=== PATIENT | female | born 1980 | race Caucasian/White ===

== ENCOUNTER 2017-07-13 09:22 | Inpatient (IN) | payer OTHER ==
--- NOTE | 2017-07-13 11:25 | HP ---
General Information - General Information Maternal Age: 37 Grav: 1 Para: 0 SAB: 0 IEA: 0 Estimated Due Date: 07/01/17 Determined By: LMP Gestational Age in Weeks and Days: 41 Weeks and 5 Days Maternal Blood Type and Rh: A Positive - Results this Serology/RPR Result: Non-Reactive Rubella Result: Non-Immune HBsAg Result: Negative HIV Result: Negative GBS Culture Result: Negative Past Medical History Pertinent Past Medical History: Non-Contributory Pertinent Past Surgical History: None Pertinent Family History: Non-Contributory - Antepartal Records Antepartal Records: Reviewed, Complicated by: - age 37 at delivery, NIPT WNL Review of Systems Constitutional: Uncomfortable CV Complaint: No Respiratory: Shortness of Breath: No Genitourinary: No Leaking Fluid Musculoskeletal: Contractions Neurological: No Headache Movement: Normal - Comments nausea/vomiting. Soft stool this am Exam Allergies/Adverse Reactions: Allergies No Known Allergies Allergy (Verified 07/13/17 09:33) Vital Signs 07/13/17 09:30 Temperature 98.7 F Pulse Rate 87 Respiratory 17 Rate Blood Pressure 127/71 (mmHg) O2 Sat by Pulse 99 Oximetry - Measurements Height: 5 ft 10.5 in Weight: 185 lb Weight in lbs: 185 Body Mass Index (BMI): 26.2 Pre- Weight: 144 lb Weight Gained This : 41 lbs and 0 ozs - Exam Breast: - - soft, no masses CVA: No CVA Tenderness Extremities: No Edema Heart: Normal Rhythm/Heart Sounds HEENT: No Significant Findings Lungs: Clear Bilaterally Reflexes: DTR 2+ Thyroid: No Thyromegaly - Ultrasound/Biophysical Profile Ultrasound Status: Not Done Targeted Exam Findings See L&D Outpatient Visit Provider Note for Findings: N/A Estimated Weight: 8 lbs Cervical Exam: 4cm Effacement: 100% Station: 0 Presenting Part: Vertex Membrane Status: Intact Bleeding/Discharge: Bloody Show EFM Findings - External Monitor Findings Baseline Heart Rate: 140 External Monitor Findings: Accelerations Present, No Pattern of Variable or Late Decelerations, Variability Moderate External Monitor Findings Comment: category 1 Contractions: Regular, Strong, 45-90 Seconds Contraction Frequency: q 5 min Assessment/Plan - Reason for Visit Reason for Visit: labor - Obstetrical Risk Factors Obstetrical Risk Factors: Post-Dates - Plan Plan: Active Labor Plan Comment: admit, anticipate vaginal delivery - Date/Time of Admission Date of Admission: 07/13/17 Time of Admission: 09:45
[2017-07-13] MEDS ORDERED: Witch Hazel PAD* JAR ONE (16:50)
[2017-07-13] MEDS ORDERED: Glycerin ADULT SUPP PR PRN (17:58)
[2017-07-13] MEDS ORDERED: Measles, Mumps,Rubella VACC* 0.5 ML/VIAL SUBCUT ONE (17:58)
[2017-07-13] MEDS ORDERED: Acetaminophen TAB* 325 MG PO PRN (17:58)
[2017-07-13] MEDS ORDERED: OXYTOCIN* 10 UNITS/ML 1 ML VIAL IM ONE (17:58)
[2017-07-13] MEDS: Witch Hazel PAD* JAR TOPICAL PRN (18:13)
[2017-07-13] MEDS: Ibuprofen TAB* 600 MG PO PRN (18:27)
[2017-07-13] MEDS: Docusate CAP* 100 MG PO SCH (20:33)
[2017-07-14] MEDS: Ibuprofen TAB* 600 MG PO PRN ×4 (00:28→20:25)
[2017-07-14 06:35] LABS: Hematocrit 33 % (35-47); Hemoglobin 11.5 g/dl (12.0-16.0); Mean Corpuscular HGB Conc 35 g/dl (31-36); Mean Corpuscular Hemoglobin 33 pg (27-31); Mean Corpuscular Volume 93 fL (80-97); Mean Platelet Volume 10.7 um3 (7.4-10.4); Platelet Count 150 10^3/ul (150-450); Red Blood Count 3.53 10^6/ul (4.0-5.4); Red Cell Distribution Width 13 % (10.5-15)
[2017-07-14] MEDS: Docusate CAP* 100 MG PO SCH ×3 (08:16→20:26)
[2017-07-14] MEDS ORDERED: Ferrous Gluconate TAB* 324 MG TAB PO SCH (09:00)
[2017-07-14] MEDS: Dibucaine 1% 28.35 GM TUBE PR PRN (16:13)
[2017-07-14] MEDS: Witch Hazel PAD* JAR TOPICAL PRN (19:18)
--- NOTE | 2017-07-14 20:39 | PTEDU ---
Patient Name: KIARA HARRIS KIARA HARRIS selected video: Never Ever Shake a Baby to view on 07/14/2017 at 8:38:18 PM from [id number]
[2017-07-15] MEDS: Ibuprofen TAB* 600 MG PO PRN ×2 (04:04→12:36)
[2017-07-15 08:03] VITALS: BP 123/77
[2017-07-15] MEDS: Dibucaine 1% 28.35 GM TUBE PR PRN (08:47)
[2017-07-15] MEDS: Docusate CAP* 100 MG PO SCH (08:47)
== END 2017-07-15 14:36 | disposition home or self-care (01) | DRG 775 ==
LOC: MCHOBOUT 09:22 → MCHOB 09:57
PROVIDERS: ADMIT Midwife; ATTEND Midwife
PROC: 10E0XZZ Delivery of Products of Conception, External Approach (ICD-10-PCS; principal; 2017-07-13)
PROC: 10907ZC Drainage of Amniotic Fluid, Therapeutic from Products of Conception, Via Natural or Artificial Opening (ICD-10-PCS; 2017-07-13)
PROC: 0HQ9XZZ Repair Perineum Skin, External Approach (ICD-10-PCS; 2017-07-13)
DX: O48.0 Post-term pregnancy (principal); Z3A.41 41 weeks gestation of pregnancy; O70.0 First degree perineal laceration during delivery; O77.0 Labor and delivery complicated by meconium in amniotic fluid; O69.81X0 Labor and delivery complicated by cord around neck, without compression, not applicable or unspecified; Z37.0 Single live birth
CPT/HCPCS: 36415; 85027; 90707; A9270-GY; J2590

== ENCOUNTER 2018-11-27 16:21 | Emergency (ER) | payer OTHER ==
[2018-11-27 16:35] VITALS: BP 105/69
--- NOTE | 2018-11-27 17:32 | UC ---
Head Injury HPI - HPI Summary HPI Summary: 38-year-old woman coming in with a chief complaint of a head injury. Occurred yesterday which actually hit her forehead that when opening a car door. No loss of consciousness. She did feel dazed. She continues to have a moderate headache primarily frontal. Today at work she felt like her mental process was a little bit slower than normal. No complaint of photophobia or vision change or difficulty with speech or weakness or numbness. She is not on blood thinners there is no nausea or vomiting. Patient did have a small cut at the area there is no active bleeding. - History Of Current Complaint Chief Complaint: UCHeadInjury Stated Complaint: HIT HER HEAD YESTERDAY Time Seen by Provider: 11/27/18 17:19 Hx Last Menstrual Period: 3 weeks Pain Intensity: 4 - Allergies/Home Medications Allergies/Adverse Reactions: Allergies Allergy/AdvReac Type Severity Reaction Status Date / Time No Known Allergies Allergy Verified 07/13/17 09:33 Home Medications: Home Medications Ibuprofen TAB* [Motrin TAB* 400 MG] 400 mg PO Q6H PRN 11/27/18 [History Confirmed 11/27/18] PMH/Surg Hx/FS Hx/Imm Hx Previously Healthy: Yes - Surgical History Surgical History: None - Family History Known Family History: Positive: Non-Contributory - Social History Alcohol Use: None Substance Use Type: None Smoking Status (MU): Never Smoked Tobacco - Immunization History Most Recent Influenza Vaccination: 02/11/17 Most Recent Pneumonia Vaccination: none Review of Systems All Other Systems Reviewed And Are Negative: Yes Constitutional: Positive: Other - SEE HPI Skin: Positive: Other - SEE HPI Eyes: Positive: Negative ENT: Positive: Negative Respiratory: Positive: Negative Cardiovascular: Positive: Negative Gastrointestinal: Positive: Negative Motor: Positive: Negative Neurovascular: Positive: Negative Musculoskeletal: Positive: Negative Neurological: Positive: Headache Psychological: Positive: Negative Is Patient Immunocompromised?: No Physical Exam Triage Information Reviewed: Yes Appearance: Well-Appearing, No Pain Distress, Well-Nourished Vital Signs: Initial Vital Signs Temp 98.4 F 11/27/18 16:29 Pulse 82 11/27/18 16:29 Resp 16 11/27/18 16:29 BP 105/69 11/27/18 16:29 Pulse Ox 100 11/27/18 16:29 Vital Signs Reviewed: Yes Eye Exam: Normal Eyes: Positive: Conjunctiva Clear, Other: - PERRLA EOMI no photophobia ENT: Positive: TMs normal - No hemotympanum Respiratory: Positive: Lungs clear, Normal breath sounds, No respiratory distress Cardiovascular: Positive: RRR Musculoskeletal: Positive: Strength Intact, ROM Intact Neurological: Positive: Alert Psychological: Positive: Age Appropriate Behavior Skin: Positive: Other - There is 2 cm soft tissue swelling with 5 mm scabbed over area on the right forehead. No crepitus. The area is tender to palpation. Head Injury Course/Dx - Course Course Of Treatment: Patient has no focal neurologic deficit she is not on blood thinners she did not lose consciousness there is no vomiting therefore at this time the patient does not meet criteria for a CT scan. This was all discussed with the patient and she preferred to not have a CT scan at this time. Discussed the signs and symptoms of concussion which the patient does have. Primarily a continuing headache and some slowness in mentation. The overall plan is ibuprofen and acetaminophen rest. Patient will take off work tomorrow if needed. If not completely improved she'll follow-up with sports medicine. If she gets worse she will go to the emergency department. - Differential Dx/Diagnosis Provider Diagnosis: Head injury, Concussion Discharge ED - Sign-Out/Discharge Documenting (check all that apply): Patient Departure All imaging exams completed and their final reports reviewed: No Studies - Discharge Plan Condition: Stable Disposition: HOME Patient Education Materials: Concussion (ED), Head Injury (ED) Referrals: [facility] [Provider Group] Additional Instructions: FOLLOW UP WITH SPORTS MEDICINE IF NOT COMPLETELY IMPROVED. GO TO THE EMERGENCY DEPARTMENT IF YOUR CONDITION WORSENS; PAIN, WEAKNESS, NUMBNESS, CHANGES IN SPEECH OR VISION, CONFUSION OR ANY QUESTIONS OR CONCERNS. - Billing Disposition and Condition Condition: STABLE Disposition: Home
== END 2018-11-27 17:40 | disposition home or self-care (01) ==
LOC: UCEAST 16:21
DX: S06.0X0A Concussion without loss of consciousness, initial encounter (principal); V48.4XXA Person boarding or alighting a car injured in noncollision transport accident, initial encounter; Y92.9 Unspecified place or not applicable
CPT/HCPCS: 99211; G0463

== ENCOUNTER 2019-06-16 19:30 | Day surgery (SDC) | payer OTHER ==
[2019-06-16 20:07] LABS: ABS Eosinophils 0.1 10^3/ul (0-0.6); ABS Lymphocytes 2.1 10^3/ul (1.0-4.8); ABS Monocytes 0.5 10^3/ul (0-0.8); Eosinophil % 0.7 %; Hematocrit 31 % (35-47); Hemoglobin 10.8 g/dL (12.0-16.0); Lymphocyte % 26.6 %; Mean Corpuscular HGB Conc 35 g/dL (31-36); Mean Corpuscular Hemoglobin 32 pg (27-31); Mean Corpuscular Volume 93 fL (80-97); Platelet Count 193 10^3/uL (150-450); Red Blood Count 3.33 10^6 /uL (3.70-4.87); Red Cell Distribution Width 13 % (10-15); White Blood Count 7.8 10^3/uL (3.5-10.8)
[2019-06-16 20:23] LABS: Albumin 4.3 g/dL (3.2-5.2); Calcium 9.3 mg/dL (8.6-10.3); EGFR African American 149.7 (>60); EGFR Non-African American 123.7 (>60); Globulin 2.1 g/dL (2-4); Potassium 3.5 mmol/L (3.5-5.0); Total Bilirubin 0.5 mg/dL (0.2-1.0); Total Protein 6.4 g/dL (6.4-8.9)
[2019-06-16 20:34] LABS: Urine Appearance Clear; Urine Bilirubin Negative (Negative); Urine Blood Negative (Negative); Urine Color Straw; Urine Glucose Negative (Negative); Urine Ketones Negative (Negative); Urine Nitrite Negative (Negative); Urine Protein Negative (Negative); Urine Specific Gravity 1.003 (1.010-1.030); Urine Urobilinogen Negative (Negative)
[2019-06-16] MEDS ORDERED: Rocuronium 50 mg VIAL 10 mg/ml 5 ml VIAL (50 mg) ONE (22:57)
[2019-06-16] MEDS ORDERED: Dexamethasone IV 4 MG/ML VIAL 1 ml VIAL ONE (22:57)
[2019-06-16] MEDS ORDERED: Ondansetron 4 mg VIAL 2 MG/ML 2 ml VIAL ONE (22:57)
[2019-06-16] MEDS ORDERED: Propofol 10 MG/ML 20 ML BTL ONE (22:57)
[2019-06-16] MEDS ORDERED: Midazolam 5 mg/5 ml VIAL 1 mg/ml 5 ml VIAL (5 mg) ONE (22:57)
[2019-06-16] MEDS ORDERED: fentaNYL 250 mcg/5 ml 50 MCG/ML 5 ml VIAL (250 MCG) ONE (22:57)
[2019-06-16] MEDS ORDERED: Lidocaine 2% PF 5 ML VIAL ONE (22:57)
[2019-06-16] MEDS ORDERED: ceFAZolin 2 GM PREMIX in ORs 2 GM/50 ML BAG ONE (23:41)
[2019-06-17] MEDS ORDERED: EPHEDrine (Pressors) 50 MG/ML VIAL ONE (00:12)
[2019-06-17] MEDS ORDERED: Bupivacaine 0.5% 50 ML MDV VIAL ONE (00:24)
[2019-06-17] MEDS ORDERED: Sugammadex 500 MG/5 ML 5 ml VIAL IV PUSH ONE (01:01)
[2019-06-17] MEDS ORDERED: Ondansetron 4 mg VIAL 2 MG/ML 2 ml VIAL IV PRN (01:04)
[2019-06-17] MEDS ORDERED: fentaNYL 100 mcg/2 ml 50 MCG/ML VIAL IV PRN (01:04)
[2019-06-17] MEDS ORDERED: Naloxone 0.4 mg VIAL 0.4 mg/ml 1 ml VIAL IV PRN (01:04)
[2019-06-17] MEDS ORDERED: Acetaminophen IV 1 GM/100ML 1,000 MG/100 ML VIAL IVPB ONE (01:58)
[2019-06-17] MEDS ORDERED: Acetaminophen IV 1 GM/100ML 100 ML ONE (02:03)
[2019-06-17 02:50] VITALS: BP 105/58
[2019-06-20] MEDS ORDERED: Scopolamine PATCH Remove NOTE PATCH OFF ONE (01:05)
== END 2019-06-17 03:17 | disposition home or self-care (01) ==
LOC: ED 19:30 → OR 23:03
PROVIDERS: ATTEND Obstetrics & Gynecology